=== PATIENT | male | born 1970 | race Caucasian/White ===

== ENCOUNTER → 2016-04-28 | Outpatient (CLI) | payer OTHER ==
--- NOTE | 2016-04-28 18:34 | MR ---
EXAMINATION TYPE: MR cervical spine wo con DATE OF EXAM: 04/28/2016 5:14 PM COMPARISON: 02/05/2015 HISTORY: Neck pain TECHNIQUE: Multiplanar, multisequence images of the cervical spine were acquired. C2-C3: No evidence for degenerative disc disease. No disc bulge/herniation or protrusion. No Canal stenosis. Foramina are patent bilaterally. C3-C4: No evidence for degenerative disc disease. No disc bulge/herniation or protrusion. No Canal stenosis. Foramina are patent bilaterally. C4-C5: No evidence for degenerative disc disease. No disc bulge/herniation or protrusion. No Canal stenosis. Foramina are patent bilaterally. C5-C6: No evidence for degenerative disc disease. No disc bulge/herniation or protrusion. No Canal stenosis. Foramina are patent bilaterally. C6-C7: No evidence for degenerative disc disease. No disc bulge/herniation or protrusion. No Canal stenosis. Foramina are patent bilaterally. C7-T1: No evidence for degenerative disc disease. No disc bulge/herniation or protrusion. No Canal stenosis. Foramina are patent bilaterally. Cervical segments are intact. There is normal alignment. Cervical spinal cord is of normal signal. Craniovertebral junction relationships are within normal limits. IMPRESSION: No significant abnormality appreciated.
== END ==
LOC: RADMRIMAIN 16:45
PROVIDERS: ATTEND Internal Medicine
DX: R52 Pain, unspecified (principal)
CPT/HCPCS: 72141

== ENCOUNTER → 2016-09-19 | Outpatient (CLI) | payer OTHER ==
--- NOTE | 2016-09-20 07:23 | XR ---
EXAMINATION TYPE: XR knee complete LT DATE OF EXAM: 09/19/2016 CLINICAL HISTORY: pain TECHNIQUE: Three views of the left knee are obtained. COMPARISON: None. FINDINGS: There is no acute fracture/dislocation. The tri-compartment joint spaces appear within no rmal limits. The overlying soft tissue appears unremarkable. IMPRESSION: There is no acute fracture or dislocation ICD 10 NO FRACTURE, INITIAL EVALUATION
== END | disposition home or self-care (01) ==
LOC: RADXRMAIN 16:54
PROVIDERS: ATTEND Internal Medicine
DX: M25.562 Pain in left knee (principal)

== ENCOUNTER → 2017-03-09 | Outpatient (CLI) | payer OTHER ==
--- NOTE | 2017-03-09 15:56 | XR ---
EXAMINATION TYPE: XR chest 2V DATE OF EXAM: 03/09/2017 COMPARISON: 11/10/14 HISTORY: Chest pain TECHNIQUE: Frontal and lateral views of the chest are obtained. FINDINGS: There is no focal air space opacity. No evidence for pneumothorax. No pleural effusion. The cardiac silhouette size is within normal limits. The osseous structures are grossly intact. IMPRESSION: 1. No acute cardiopulmonary process.
== END | disposition home or self-care (01) ==
LOC: RADXRMAIN 15:41
PROVIDERS: ATTEND Internal Medicine
DX: R05 Cough (principal)
CPT/HCPCS: 71046

== ENCOUNTER → 2017-03-16 | Outpatient (CLI) | payer OTHER ==
--- NOTE | 2017-03-16 15:47 | MR ---
EXAMINATION TYPE: MR lumbar spine wo con DATE OF EXAM: 03/16/2017 3:41 PM COMPARISON: NONE HISTORY: Multiplanar, MultiSpin echo imaging of the lumbar spine was performed. L1-L2: Normal disc appearance without desiccation. No herniation, protrusion or disc bulging. No ca nal stenosis is present. Foramina are patent bilaterally. L2-L3: Normal disc appearance without desiccation. No herniation, protrusion or disc bulging. No ca nal stenosis is present. Foramina are patent bilaterally. L3-L4: Normal disc appearance without desiccation. No herniation, protrusion or disc bulging. No ca nal stenosis is present. Foramina are patent bilaterally. L4-L5: Normal disc appearance without desiccation. No herniation, protrusion or disc bulging. No ca nal stenosis is present. Foramina are patent bilaterally. L5-S1: Near grade 2 anterolisthesis L5 on S1 9.5 mm. Severe degenerative disc disease with mild disc bulging. Suspect bilateral spondylolysis. No evidence for central stenosis or heaven disc herniation. Bilateral foraminal encroachment identified. Lumbar segments are intact. No paraspinal masses are identified. Conus medullaris has a normal appe arance. IMPRESSION: 1. L5-S1: Near grade 2 anterolisthesis L5 on S1 9.5 mm. Severe degenerative disc disease with mild di sc bulging. Suspect bilateral spondylolysis. 2. Bilateral foraminal encroachment at L5-S1.
== END | disposition home or self-care (01) ==
LOC: RADMRIMAIN 14:39
PROVIDERS: ATTEND Psychiatry & Neurology Neurology
DX: M43.17 Spondylolisthesis, lumbosacral region (principal); M51.26 Other intervertebral disc displacement, lumbar region; M51.36 Other intervertebral disc degeneration, lumbar region; Z88.5 Allergy status to narcotic agent
CPT/HCPCS: 72148

== ENCOUNTER 2017-05-26 00:26 | Emergency (ER) | payer OTHER ==
[2017-05-26 00:38] VITALS: BP 151/85; PULSE 79; RESP 18; TEMP 98.8
[2017-05-26] MEDS ORDERED: IBUPROFEN 800 MG TAB PO STA (00:50)
[2017-05-26] MEDS ORDERED: PENICILLIN VK 500MG STARTER 4 TAB BTL PO STA (00:51)
--- NOTE | 2017-05-26 00:53 | ED ---
General Adult HPI - General Chief complaint: Dental/Oral Stated complaint: Dental Time Seen by Provider: 05/26/17 00:44 Source: patient, RN notes reviewed Mode of arrival: ambulatory Limitations: no limitations - History of Present Illness Initial comments: Patient 47-year-old male presenting to the emergency room today with a chief complaint of dental pain. He states that no some swelling over this one. Systemic dental fracture for quite some time. Patient does admit some tenderness and pain over tooth #14. He denies any other complaints or symptoms. Denies any drainage or discharge. Patient denies any recent fever, chills, shortness of breath, chest pain, back pain, abdominal pain, nausea or vomiting, numbness or tingling, headaches or visual changes, or any other complaints. - Related Data Home Medications Medication Instructions Recorded Confirmed Albuterol Inhaler [Ventolin Hfa 1 - 2 puff INHALATION RT-Q6H PRN 01/08/16 Inhaler] Fluticasone/Vilanterol [Breo 1 puff INHALATION RT-DAILY 01/08/16 01/27/16 Ellipta 100-25 Mcg Inhaler] Losartan Potassium [Cozaar] 50 mg PO DAILY 01/08/16 01/27/16 Previous Rx's Medication Instructions Recorded HYDROcodone/APAP 7.5-325MG [[place] 1 tab PO Q6HR PRN #28 tab 01/28/16 7.5-325] Nicotine 21Mg/24Hr Patch [Habitrol] 1 each TRANSDERM DAILY #30 patch 01/28/16 Ibuprofen [Motrin] 800 mg PO Q6HR #30 tab 05/26/17 Penicillin V Potassium [Pen Vee K] 500 mg PO QID #40 tablet 05/26/17 Allergies Allergy/AdvReac Type Severity Reaction Status Date / Time codeine AdvReac Nausea & Verified 05/26/17 00:36 Vomiting Review of Systems ROS Statement: Those systems with pertinent positive or pertinent negative responses have been documented in the HPI. ROS Other: All systems not noted in ROS Statement are negative. Past Medical History Past Medical History: COPD, GERD/Reflux, Hypertension Additional Past Medical History / Comment(s): migraines, hiatal hernia, shekhar tennis elbow History of Any Multi-Drug Resistant Organisms: None Reported Past Surgical History: Orthopedic Surgery Additional Past Surgical History / Comment(s): rt wrist surgery Past Anesthesia/Blood Transfusion Reactions: No Reported Reaction Past Psychological History: Bipolar, Depression Smoking Status: Current some day smoker Past Alcohol Use History: None Reported Past Drug Use History: Marijuana - Past Family History Mother Family Medical History: No Reported History General Exam - General Exam Comments Initial Comments: General: The patient is awake and alert, in no distress, and does not appear acutely ill. Eye: Pupils are equal, round and reactive to light, extra-ocular movements are intact. No nystagmus. There is normal conjunctiva bilaterally. No signs of icterus. Ears, nose, mouth and throat: There are moist mucous membranes and no oral lesions. Patient has poor dental hygiene with multiple dental fractures the gumline. Locally tender in the gumline of tooth #15. There is no sign of abscess. There is some swelling appreciated on the outside nothing that is fluctuant. Uvula midline. Neck: The neck is supple, there is no tenderness or JVD. Musculoskeletal: Normal ROM, no tenderness. Strength 5/5. Sensation intact. Pulses equal bilaterally 2+. Neurological: A&O x 3. CN II-XII intact, There are no obvious motor or sensory deficits. Coordination appears grossly intact. Speech is normal. Skin: Skin is warm and dry and no rashes or lesions are noted. Psychiatric: Cooperative, appropriate mood & affect, normal judgment. Limitations: no limitations Course Vital Signs 05/26/17 00:36 Temperature 98.8 F Pulse Rate 79 Respiratory 18 Rate Blood Pressure 151/85 O2 Sat by Pulse 97 Oximetry Disposition Clinical Impression: Dental abscess Disposition: HOME SELF-CARE Condition: Good Instructions: Dental Abscess (ED) Additional Instructions: Please follow-up with dentist and use antibiotic and pain medication as discussed. [facility] [place] [address] [place] [address] [phone]) (existing clients only) For new clients: [phone] [employer] [facility] [employer] Pay $50 for x-rays and the rest discovered [phone] Prescriptions: Ibuprofen [Motrin] 800 mg PO Q6HR #30 tab Penicillin V Potassium [Pen Vee K] 500 mg PO QID #40 tablet Referrals: Ron Randall MD [Primary Care Provider] - 1-2 days Time of Disposition: 00:52
== END 2017-05-26 01:04 | disposition home or self-care (01) ==
LOC: EC 00:26
DX: K04.7 Periapical abscess without sinus (principal); S02.5XXA Fracture of tooth (traumatic), initial encounter for closed fracture; J44.9 Chronic obstructive pulmonary disease, unspecified; F17.200 Nicotine dependence, unspecified, uncomplicated; I10 Essential (primary) hypertension; Z88.5 Allergy status to narcotic agent; Z79.899 Other long term (current) drug therapy; X58.XXXA Exposure to other specified factors, initial encounter
CPT/HCPCS: 99282

== ENCOUNTER → 2018-04-02 | Outpatient (CLI) | payer OTHER ==
--- NOTE | 2018-04-02 12:47 | XR ---
EXAMINATION TYPE: XR chest 2V DATE OF EXAM: 04/02/2018 COMPARISON: 03/09/2017 HISTORY: History of tuberculosis. Follow-up exam. TECHNIQUE: Frontal and lateral views of the chest are obtained. FINDINGS: Incidental note is made of an azygos fissure. There is no focal air space opacity, pleural effusion, or pneumothorax seen. The cardiac silhouette size is within normal limits. The osseous structures are intact. There is pulmonary hyperinflation present with flattening of the diaphragms on the lateral view that could relate to degree of inspiration or underlying COPD. Correlate with pulmo nary function tests. IMPRESSION: No acute cardiopulmonary process.
--- NOTE | 2018-04-02 12:49 | XR ---
EXAMINATION TYPE: XR ankle complete bilateral DATE OF EXAM: 04/02/2018 CLINICAL HISTORY: Bilateral ankle pain with no known injury TECHNIQUE: Frontal, lateral and oblique images of the bilateral ankles were obtained. COMPARISON: None. FINDINGS: There is no acute fracture/dislocation evident in either ankle. The ankle mortise appears within normal limits bilaterally. The overlying soft tissue appears unremarkable. No suspicious oss eous lesion is seen. Osseous mineralization is within normal limits. IMPRESSION: Unremarkable radiographs of the bilateral ankles.
== END | disposition home or self-care (01) ==
LOC: RADXRMAIN 12:03
PROVIDERS: ATTEND Internal Medicine
DX: M25.571 Pain in right ankle and joints of right foot (principal); M25.572 Pain in left ankle and joints of left foot; Z86.11 Personal history of tuberculosis
CPT/HCPCS: 71046

== ENCOUNTER → 2018-07-13 | Outpatient (CLI) | payer OTHER ==
--- NOTE | 2018-07-16 09:35 | MR ---
EXAMINATION TYPE: MR knee RT wo con DATE OF EXAM: 07/13/2018 COMPARISON: None HISTORY: RT. knee pain TECHNIQUE: Multiplanar, multisequence imaging of the right knee is performed without IV contrast. FINDINGS: MEDIAL MENISCUS: There is a radial tear of the free edge of the posterior horn of the medial meniscus . LATERAL MENISCUS: Anterior and posterior horns are intact without tear. CRUCIATE LIGAMENTS: The anterior and posterior cruciate ligaments are intact and unremarkable. COLLATERAL LIGAMENTS: The medial collateral ligament and lateral collateral ligament complex are inta ct and unremarkable. EXTENSOR MECHANISM: Visualized quadriceps and patellar tendons are intact. EFFUSION: No significant suprapatellar joint effusion. POPLITEAL CYST: Small popliteal cyst appears unilocular. TRICOMPARTMENT SPACES: Minimal medial compartment joint space narrowing. CARTILAGE: There is very mild signal heterogeneity in the medial compartment cartilage with partial-t hickness cartilaginous loss of the tibial cartilage measuring 6 mm at the medial joint space. Lateral compartment cartilage and patellofemoral cartilage are intact and unremarkable. BONE MARROW SIGNAL: Small multilobulated lesion of the distal medial femoral condyle presumably repre senting intraosseous ganglion given its PD/T2 hyperintensity, T1 hypointensity, multicystic appearanc e. Additionally there is very mild bone marrow edema of the lateral tibial plateau deep to the menis linden tear and the most medial margin. IMPRESSION: 1. Radial tear of the free edge of the posterior horn of the medial meniscus with underlying mild bon e marrow edema and partial thickness cartilaginous defect of the tibial cartilage of the most medial aspect of the medial compartment. 2. Mild medial compartment arthrosis and chondrosis.
== END | disposition home or self-care (01) ==
LOC: RADMRIMAIN 13:12
PROVIDERS: ATTEND Orthopaedic Surgery
DX: S83.241A Other tear of medial meniscus, current injury, right knee, initial encounter (principal); M17.11 Unilateral primary osteoarthritis, right knee; M94.261 Chondromalacia, right knee

== ENCOUNTER → 2019-01-21 | Outpatient (CLI) | payer OTHER ==
--- NOTE | 2019-01-21 13:15 | XR ---
EXAMINATION TYPE: XR foot complete RT DATE OF EXAM: 01/21/2019 CLINICAL HISTORY: pain TECHNIQUE: Frontal, lateral and oblique images of the right foot are obtained. COMPARISON: None. FINDINGS: There is no acute fracture/dislocation evident. Severe degenerative narrowing first metata rsal phalangeal joint with associated spur formation. The overlying soft tissue appears unremarkable. IMPRESSION: There is no acute fracture or dislocation. ICD 10 NO FRACTURE, INITIAL EVALUATION
== END | disposition home or self-care (01) ==
LOC: RADXRMAIN 10:58
PROVIDERS: ATTEND Podiatrist
DX: M86.8X7 Other osteomyelitis, ankle and foot (principal); M19.071 Primary osteoarthritis, right ankle and foot

== ENCOUNTER → 2019-12-12 | Outpatient (CLI) | payer OTHER ==
--- NOTE | 2019-12-12 10:52 | NM ---
EXAMINATION TYPE: NM hepatobiliary w CCK DATE OF EXAM: 12/12/2019 COMPARISON: NONE HISTORY: 49-year-old male K82.8, biliary dyskinesia. TECHNIQUE: After the intravenous administration of 4.19 mCi Tc 99m Mebrofenin hepatobiliary scintigra phy is performed. Immediate images post injection. FINDINGS: There is satisfactory initial accumulation of tracer by the liver. The gallbladder is visualized wit hin 8 minutes. The small bowel activity is noted within 10 minutes. At one hour CCK was administere d, patient was injected with 1.4 mcg of Kinevac, and gallbladder ejection fraction is calculated at 8 5 %, slightly elevated. IMPRESSION: 1. No scintigraphic evidence for acute/chronic cholecystitis or biliary dyskinesia. 2. Elevated gallbladder ejection fraction of 85% may be seen in the setting of gallbladder hyperkines is. Clinically correlate.
== END | disposition home or self-care (01) ==
LOC: RADNMMAIN 08:25
PROVIDERS: ATTEND Surgery
DX: K82.8 Other specified diseases of gallbladder (principal)
CPT/HCPCS: 78227; A9537; J2805

== ENCOUNTER → 2020-01-15 | Day surgery (SDC) | payer OTHER ==
[2020-01-13 14:02] VITALS: BMI 23.8
[~2020-01-15] MED LIST: ACETAMINOPHEN TAB 500 MG TAB PO ONE; BUPIVACAINE (PF) 0.5% 30 ML VIAL SQ ONE; DEXAMETHASONE SOD PHOSPHATE 4 MG/ML 1 ML VIAL IV ONE; GLYCOPYRROLATE 0.2 MG/ML 2 ML VIAL ONE; HEPARIN SODIUM,PORCINE 5,000 UNIT/ML 1 ML VIAL SQ ONE; HYDROmorphone (PF) 1 MG/ML ONE; KETOROLAC 15 MG/ML 1 ML VIAL ONE; LACTATED RINGERS 1,000 ML IV ONE; LACTATED RINGERS 1,000 ML IV SCH; LIDOCAINE 1% (10MG/ML) FOR IV START INTRADERMA ONE; LIDOCAINE 1% INJ 10MG/ML (20 ML MDV) ONE; MIDAZOLAM 2 MG/2 ML VIAL ONE; NEOSTIGMINE 1 MG/ML 10 ML VIAL ONE; ONDANSETRON 4 MG/2 ML VIAL IVP ONE; PROPOFOL 10 MG/ML 20 ML VIAL IV ONE; ROCURONIUM 10 MG/ML (10 ML VIAL) IV ONE; SUCCINYLCHOLINE CHLORIDE 100 MG/5 ML SYR IV ONE; fentaNYL (PF) 50 MCG/ML 2 ML AMP ONE
--- NOTE | 2020-01-15 10:31 | P.GSHP ---
History of Present Illness H&P Date: 01/15/20 Chief Complaint: Right upper quadrant pain This a 41-year-old male who presents today for laparoscopic cholecystectomy. Patient's had complete the right upper quadrant pain. Her recent HIDA scan shows an elevated ejection fraction consistent with chronic cholecystitis. Past Medical History Past Medical History: COPD, GERD/Reflux, Musculoskeletal Disorder Additional Past Medical History / Comment(s): "Diagnosed with COPD many yrs ago, have never had any problems with it." Migraines, bilateral tennis elbow, chronic low back and neck pain, Degenerative Disc Disease in neck and low back. History of Any Multi-Drug Resistant Organisms: None Reported Past Surgical History: Orthopedic Surgery Additional Past Surgical History / Comment(s): Right wrist surgery, left knee surgery, hiatal hernia surgery. Past Anesthesia/Blood Transfusion Reactions: No Reported Reaction Past Psychological History: Bipolar, Depression Additional Psychological History / Comment(s): States hx Bipolar and Depression a long time ago, no current issues. Smoking Status: Current every day smoker Past Alcohol Use History: Occasional Additional Past Alcohol Use History / Comment(s): Smokes 1PPD for 40 yrs. Past Drug Use History: Marijuana Additional Drug Use History / Comment(s): Uses Marijuana daily. Aware no use 24 hrs prior to procedure. - Past Family History Mother Family Medical History: No Reported History Medications and Allergies Home Medications Medication Instructions Recorded Confirmed Type HYDROcodone/APAP 7.5-325MG [[place] 1 tab PO TID PRN 01/13/20 01/15/20 History 7.5-325] Allergies Allergy/AdvReac Type Severity Reaction Status Date / Time codeine AdvReac Nausea & Verified 01/15/20 09:06 Vomiting Surgical - Exam Vital Signs Temp Pulse Resp BP Pulse Ox 97.3 F L 53 L 16 116/73 98 01/15/20 09:15 01/15/20 09:15 01/15/20 09:15 01/15/20 09:15 01/15/20 09:15 - General well developed, well nourished, no distress - Eyes PERRL - ENT normal pinna - Neck no masses - Respiratory normal expansion - Cardiovascular Rhythm: regular - Abdomen Abdomen: soft, non tender Assessment and Plan Assessment: Chronic cholecystitis Right upper quadrant pain We'll perform laparoscopic cholecystectomy.
--- NOTE | 2020-01-15 11:31 | P.OP ---
Date of Procedure: 01/15/20 Preoperative Diagnosis: Cholecystitis Postoperative Diagnosis: Cholecystitis Procedure(s) Performed: Laparoscopic cholecystectomy Anesthesia: EBONIE Surgeon: David Amezquita Estimated Blood Loss (ml): 5 Pathology: other (Gallbladder) Condition: stable Disposition: PACU Description of Procedure: The patient was placed on the operating table. The patient received a general endotracheal tube anesthesia. The patients abdomen was prepped and draped in the usual sterile fashion. Through an infraumbilical stab incision, the fascia of the anterior abdominal wall was grasped with a pair of Kochers and then the Veress needle was placed in the peritoneal cavity. Position of the Veress needle was confirmed with positive drop test. The abdomen was then insufflated. After adequate insufflation, the 10 mm trocar was placed in the peritoneal cavity. Following this the laparoscope was placed in the peritoneal cavity. The patient was placed in the head-up, right side up position and then a 5 mm trocar was placed in the right lateral and right subcostal position under direct visualization. A 8 mm trocar was placed in the epigastric position. The gallbladder was grasped in the fundus and infundibulum. Traction on the gallbladder was placed in the lateral and the cephalad positions. The triangle of Calot was visualized.. The cystic duct was bluntly dissected until the union of the cystic duct and common bile duct was seen. A critical view of safety was achieved. The cystic duct was then divided and sealed with the Harmonic scissors. A PDS Endoloop was then placed throughout the cystic duct stump. The cystic artery divided and sealed with the Harmonic scissors. The gallbladder was then removed from the liver bed using Harmonic scissors. The gallbladder was then extracted through the epigastric port site. Operative field was checked for any bleeding spots and Harmonic scissors was used to coagulate the liver bed. The abdomen was irrigated. The trocars were removed. The skin was closed using interrupted 3-0 Vicryl suture. Dermabond dressing were applied. The patient tolerated the procedure well.
[2020-01-15] MEDS: HYDROmorphone 0.5 MG/0.5 ML SYRINGE IVP PRN ×2 (11:33→11:40)
[2020-01-15 11:41] VITALS: TEMP 98.4
[2020-01-15 12:48] VITALS: BP 124/81; PULSE 80; RESP 18
== END ==
LOC: OR 08:49
PROVIDERS: ATTEND Surgery
DX: K81.1 Chronic cholecystitis (principal); K82.8 Other specified diseases of gallbladder; J44.9 Chronic obstructive pulmonary disease, unspecified; G43.909 Migraine, unspecified, not intractable, without status migrainosus; F31.9 Bipolar disorder, unspecified; K21.9 Gastro-esophageal reflux disease without esophagitis; M50.30 Other cervical disc degeneration, unspecified cervical region; M51.36 Other intervertebral disc degeneration, lumbar region; F17.210 Nicotine dependence, cigarettes, uncomplicated; Z79.891 Long term (current) use of opiate analgesic; Z88.5 Allergy status to narcotic agent; Z98.890 Other specified postprocedural states
CPT/HCPCS: 88304; 47562; J2250; J1644; J1100; J2710; J0690; J2405; J2001; J3010; J1170 ×2; J1885; J0330; J2704

== ENCOUNTER → 2021-08-17 | Outpatient (CLI) | payer OTHER ==
--- NOTE | 2021-08-17 16:24 | XR ---
EXAMINATION TYPE: XR shoulder complete RT DATE OF EXAM: 08/17/2021 COMPARISON: NONE INDICATION: Right shoulder pain TECHNIQUE: 3 views of the right shoulder FINDINGS: Moderate degenerative changes of the right acromioclavicular joint. Unremarkable glenohumeral articul ation. No definite acute fracture line identified. No humeral head dislocation or significant subluxation. No signs of rotator cuff calcific tendinitis. Maintained acromiohumeral distance. IMPRESSION: Degenerative changes of the acromioclavicular joint.
== END | disposition home or self-care (01) ==
LOC: RADXRMAIN 15:38
PROVIDERS: ATTEND Internal Medicine
DX: M19.011 Primary osteoarthritis, right shoulder (principal)

== ENCOUNTER 2022-03-15 07:33 | Emergency (ER) | payer OTHER ==
[2022-03-15 07:37] VITALS: BP 149/100; PULSE 78; RESP 18; TEMP 98
[2022-03-15] MEDS ORDERED: HYDROcodone/APAP 5-325MG 1 EACH TAB PO STA (07:44)
[2022-03-15] MEDS ORDERED: KETOROLAC 15 MG/ML 1 ML VIAL IM STA (07:44)
--- NOTE | 2022-03-15 08:12 | ED ---
Upper Extremity HPI - General Chief Complaint: Extremity Injury, Upper Stated Complaint: lt hand injury Time Seen by Provider: 03/15/22 07:38 Source: patient, RN notes reviewed Mode of arrival: ambulatory Limitations: no limitations - History of Present Illness Initial Comments: This is a 52-year-old male who presents to the emergency department for a left hand injury. Patient states that he was moving furniture at work yesterday, and subsequently slammed his left pinky finger into the dresser drawer. He is now having difficulty fully closing his hand and moving the pinky finger. He has been taking Tylenol with no relief in his symptoms. He is concerned that he may have broken the finger. He has not been applying any ice or taking over-the-c ounter anti-inflammatories. Denies any fevers, chills, sore throat, cough, dyspnea, chest pain, palpitations, abdominal pain, nausea, vomiting, diarrhea, back pain, or headaches. MD Complaint: Injury to:: left, finger Onset/Timin -: days(s) Handedness: left Place: work Context: crush - Related Data Home Medications Medication Instructions Recorded Confirmed HYDROcodone/APAP 7.5-325MG [[place] 1 tab PO TID PRN 01/13/20 01/15/20 7.5-325] Previous Rx's Medication Instructions Recorded Acetaminophen Tab [Tylenol] 650 mg PO Q6H #30 tab 01/15/20 Docusate [Colace] 100 mg PO BID #20 capsule 01/15/20 Ibuprofen [Motrin] 600 mg PO Q6HR PRN #40 tab 01/15/20 Celecoxib 100 mg PO BID PRN #15 capsule 03/15/22 Allergies Allergy/AdvReac Type Severity Reaction Status Date / Time codeine AdvReac Nausea & Verified 03/15/22 07:37 Vomiting Review of Systems ROS Statement: Those systems with pertinent positive or pertinent negative responses have been documented in the HPI. ROS Other: All systems not noted in ROS Statement are negative. Past Medical History Past Medical History: COPD, GERD/Reflux, Musculoskeletal Disorder Additional Past Medical History / Comment(s): "Diagnosed with COPD many yrs ago, have never had any problems with it." Migraines, bilateral tennis elbow, chronic low back and neck pain, Degenerative Disc Disease in neck and low back. History of Any Multi-Drug Resistant Organisms: None Reported Past Surgical History: Orthopedic Surgery Additional Past Surgical History / Comment(s): Right wrist surgery, left knee surgery, hiatal hernia surgery. Past Anesthesia/Blood Transfusion Reactions: No Reported Reaction Past Psychological History: Bipolar, Depression Smoking Status: Current every day smoker Past Alcohol Use History: Occasional Past Drug Use History: Marijuana - Past Family History Mother Family Medical History: No Reported History General Exam Limitations: no limitations General appearance: alert, in no apparent distress Head exam: Present: atraumatic, normocephalic, normal inspection Respiratory exam: Present: normal lung sounds bilaterally. Absent: respiratory distress, wheezes, rales, rhonchi, stridor Cardiovascular Exam: Present: regular rate, normal rhythm, normal heart sounds. Absent: systolic murmur, diastolic murmur, rubs, gallop, clicks Extremities exam: Present: other (Swelling of the entire digit of the left 5th finger. Limited passive range of motion secondary to pain. Tenderness to palpation.) Neurological exam: Present: alert, oriented X3, CN II-XII intact Psychiatric exam: Present: normal affect, normal mood Skin exam: Present: warm, dry, intact, normal color. Absent: rash Course Vital Signs 03/15/22 07:35 Temperature 98 F Pulse Rate 78 Respiratory 18 Rate Blood Pressure 149/100 O2 Sat by Pulse 99 Oximetry Medical Decision Making - Medical Decision Making This is a 52-year-old male who presents to the emergency department for a left hand injury. Was pt. sent in by a medical professional or institution? @ -No Did you speak to anyone other than the patient for history? @ -No Did you review nursing and triage notes? @ -Agree, accurate with regards to the patient's symptoms. Were old charts reviewed? @ -No Differential Diagnosis? @ -Fracture, contusion, sprain, dislocation, tendinitis, this is not meant to be an all-inclusive list. X-rays interpreted by me (1pt min.)? @ -X-ray of the left fifth digit obtained. My interpretation identifies no acute fractures or dislocations. What testing was considered but not performed? (CT, X-rays, U/S, labs)? Why? @ -None What meds were considered but not given? Why? @ -None Did you discuss the management of the patient with other professionals? @ -No Did you reconcile home meds? @ -No Was smoking cessation discussed for >3mins.? @ -No Was critical care preformed (if so, how long)? @ -No Were there social determinants of health that impacted care today? How? (Homelessness, low income, unemployed, alcoholism, drug addiction, transportation, low edu. Level, literacy, decrease access to med. care, prison, rehab)? @ -No Was there de-escalation of care discussed even if they declined? (Discuss DNR or withdrawal of care, Hospice)? @ -No What co-morbidities impacted this encounter? (DM, HTN, Smoking, COPD, CAD, Cancer, CVA, Hep., AIDS, mental health diagnosis, sleep apnea, morbid obesity)? @ -None Was patient admitted / discharged? @ -Discharged. Patient was given IM Toradol and [place] for his pain, which did offer improvement. X-ray obtained as listed above with no acute findings. I was originally going to advise ibuprofen, however patient states that he prefers to avoid this due to his hiatal hernia in the fact that this causes abdominal discomfort. Not currently taking a PPI or H2 salima. Prescription for Celebrex provided with dosing instructions reviewed. Advised that this is less likely to cause abdominal pain than ibuprofen. Advised to otherwise continue to take Tylenol. He is also instructed to apply ice for 10-15 minutes every 2-3 hours for the first 2-3 days followed by heat there afterwards. A finger was applied and a splint as well. Undiagnosed new problem with uncertain prognosis? @ -Left fifth finger injury Drug Therapy requiring intensive monitoring for toxicity (Heparin, Nitro, Insulin, Cardizem)? @ -None Were any procedures done? @ -None Diagnosis/symptom? @ -Jammed finger of left 5th finger Acute, or Chronic, or Acute on Chronic? @ -Acute Uncomplicated (without systemic symptoms) or Complicated (systemic symptoms)? @ -Uncomplicated Side effects of treatment? @ -None Exacerbation, Progression, or Severe Exacerbation] @ -Not applicable Poses a threat to life or bodily function? @ -May impact his function if he cannot use his finger or hand. Return precautions reviewed in depth, the patient is instructed to return to the emergency department with any new, worsening, or concerning symptoms. Patient verbalized understanding. This case was discussed in detail with the attending ED physician, Dr. Krishnamurthy. Presentation, findings, and treatment plan discussed in detail as well. - Radiology Data Radiology results: report reviewed, image reviewed Disposition Clinical Impression: Jammed interphalangeal joint of finger of left hand Disposition: HOME SELF-CARE Instructions (If sedation given, give patient instructions): Jammed Finger (ED) Additional Instructions: Return to the emergency department with any new, worsening, or concerning symptoms. You can take the Celebrex twice daily for pain. This is less likely to cause any problems with your stomach, however if any irritation occurs stop taking it. You can also try taking it with food to further lessen the likelihood of abdominal pain. Apply ice for 10-15 minutes every 2-3 hours for the first 2-3 days followed by heat there afterwards. You can use the finger splint as needed to reduce any additional painful movement. Follow up with your primary care provider in 1-2 days. Prescriptions: Celecoxib 100 mg PO BID PRN #15 capsule PRN Reason: Pain Is patient prescribed a controlled substance at d/c from ED?: No Referrals: Jackie Cohen MD [Primary Care Provider] - 1-2 days
--- NOTE | 2022-03-15 08:21 | XR ---
EXAMINATION TYPE: XR finger LT DATE OF EXAM: 03/15/2022 8:17 AM INDICATION: Patient age:Male; 52 years old; Reason for study: Left pinky injury; [facility]. COMPARISON: None TECHNIQUE: Frontal, lateral and oblique views of the fifth digit of the left hand were obtained. FINDINGS: Normal alignment of the visualized joints. No acute osseous pathology is identified. No ra diopaque foreign bodies. Diffuse minimal soft tissue swelling of the fifth digit. IMPRESSION: 1. No acute osseous pathology. 2. Diffuse minimal soft tissue swelling of the fifth digit.
== END 2022-03-15 08:47 | disposition home or self-care (01) ==
LOC: EC 07:33
DX: S63.631A Sprain of interphalangeal joint of left index finger, initial encounter (principal); J44.9 Chronic obstructive pulmonary disease, unspecified; F31.9 Bipolar disorder, unspecified; F17.200 Nicotine dependence, unspecified, uncomplicated; F12.90 Cannabis use, unspecified, uncomplicated; Z88.5 Allergy status to narcotic agent; W23.0XXA Caught, crushed, jammed, or pinched between moving objects, initial encounter
CPT/HCPCS: 99283; 96372; 73140; J1885

== ENCOUNTER 2022-08-18 19:42 | Emergency (ER) | payer OTHER ==
[2022-08-18 21:02] VITALS: BP 118/72; PULSE 62; RESP 20; TEMP 98.1
--- NOTE | 2022-08-18 21:43 | ED ---
ENT HPI - General Chief complaint: ENT Stated complaint: L Side Facial Swelling Time Seen by Provider: 08/18/22 21:37 Source: patient Mode of arrival: ambulatory Limitations: no limitations - History of Present Illness Initial comments: 52-year-old male presenting with chief complaint of left-sided jaw pain and swelling. Patient has known history of several fractured teeth and dental caries. He does not follow with dentist. States that this was made worse after eating chewy candy. No fever, chills, difficulty breathing, difficulty swallowing, nausea, vomiting, headache, neck pain. - Related Data Home Medications Medication Instructions Recorded Confirmed HYDROcodone/APAP 7.5-325MG [[place] 1 tab PO TID PRN 01/13/20 01/15/20 7.5-325] Previous Rx's Medication Instructions Recorded Acetaminophen Tab [Tylenol] 650 mg PO Q6H #30 tab 01/15/20 Docusate [Colace] 100 mg PO BID #20 capsule 01/15/20 Ibuprofen [Motrin] 600 mg PO Q6HR PRN #40 tab 01/15/20 Celecoxib 100 mg PO BID PRN #15 capsule 03/15/22 Amoxic-Pot Clav 875-125Mg 1 tab PO BID 7 Days #14 tab 08/18/22 [Augmentin 875-125] Allergies Allergy/AdvReac Type Severity Reaction Status Date / Time codeine AdvReac Nausea & Verified 08/18/22 21:02 Vomiting Review of Systems ROS Statement: Those systems with pertinent positive or pertinent negative responses have been documented in the HPI. ROS Other: All systems not noted in ROS Statement are negative. Past Medical History Past Medical History: COPD, GERD/Reflux, Musculoskeletal Disorder Additional Past Medical History / Comment(s): "Diagnosed with COPD many yrs ago, have never had any problems with it." Migraines, bilateral tennis elbow, chronic low back and neck pain, Degenerative Disc Disease in neck and low back. History of Any Multi-Drug Resistant Organisms: None Reported Past Surgical History: Orthopedic Surgery Additional Past Surgical History / Comment(s): Right wrist surgery, left knee surgery, hiatal hernia surgery. Past Anesthesia/Blood Transfusion Reactions: No Reported Reaction Past Psychological History: Bipolar, Depression Smoking Status: Current every day smoker Past Alcohol Use History: Occasional Past Drug Use History: Marijuana - Past Family History Mother Family Medical History: No Reported History General Exam Limitations: no limitations General appearance: alert, in no apparent distress Head exam: Present: atraumatic, normocephalic, normal inspection Eye exam: Present: normal appearance, EOMI. Absent: scleral icterus, periorbital swelling Expanded Mouth exam: Present: tongue normal. Absent: drooling, trismus, muffled voice Teeth exam: Present: dental caries, fractured tooth #, dental tenderness # Throat exam: normal inspection Neck exam: Present: normal inspection, full ROM. Absent: lymphadenopathy Respiratory exam: Present: normal lung sounds bilaterally. Absent: respiratory distress, wheezes, rales, rhonchi, stridor Cardiovascular Exam: Present: regular rate, normal rhythm, normal heart sounds. Absent: systolic murmur, diastolic murmur, rubs, gallop, clicks Neurological exam: Present: alert, oriented X3, CN II-XII intact Psychiatric exam: Present: normal affect, normal mood Skin exam: Present: warm, dry, intact, normal color. Absent: rash Course Vital Signs 08/18/22 20:59 Temperature 98.1 F Pulse Rate 62 Respiratory 20 Rate Blood Pressure 118/72 O2 Sat by Pulse 97 Oximetry Medical Decision Making - Medical Decision Making Was pt. sent in by a medical professional or institution (, PA, INTELLIGENCE OFFICER, urgent care, hospital, or long term...) When possible be specific @ -No Did you speak to anyone other than the patient for history (EMS, parent, family, police, friend...)? What history was obtained from this source @ -No Did you review nursing and triage notes (agree or disagree)? Why? @ -I reviewed and agree with nursing and triage notes Were old charts reviewed (outside hosp., previous admission, EMS record, old EKG, old radiological studies, urgent care reports/EKG's, long term records)? Report findings @ -No old charts were reviewed Differential Diagnosis (chest pain, altered mental status, abdominal pain women, abdominal pain men, vaginal bleeding, weakness, fever, dyspnea, syncope, headache, dizziness, GI bleed, back pain, seizure, CVA, palpatations, mental health, musculoskeletal)? @ Differential includes toothache, dental abscess, Al's angina, this is not an all inclusive list EKG interpreted by me (3pts min.). @ -As above X-rays interpreted by me (1pt min.). @ -None done CT interpreted by me (1pt min.). @ -None done U/S interpreted by me (1pt. min.). @ -None done What testing was considered but not performed or refused? (CT, X-rays, U/S, labs)? Why? @ -None What meds were considered but not given or refused? Why? @ -None Did you discuss the management of the patient with other professionals (professionals i.e. , PA, INTELLIGENCE OFFICER, lab, RT, psych nurse, nephrology social worker, lift electrician, teacher, animal park code enforcement officer, family independence case manager)? Give summary @ -No Was smoking cessation discussed for >3mins.? @ -No Was critical care preformed (if so, how long)? @ -No Were there social determinants of health that impacted care today? How? (Homelessness, low income, unemployed, alcoholism, drug addiction, transportation, low edu. Level, literacy, decrease access to med. care, [facility] [facility], rehab)? @ -No Was there de-escalation of care discussed even if they declined (Discuss DNR or withdrawal of care, Hospice)? DNR status @ -No What co-morbidities impacted this encounter? (DM, HTN, Smoking, COPD, CAD, Cancer, CVA, ARF, Chemo, Hep., AIDS, mental health diagnosis, sleep apnea, morbid obesity)? @ -None Was patient admitted / discharged? Hospital course, mention meds given and route, prescriptions, significant lab abnormalities, going to OR and other pertinent info. @ -52-year-old male presenting with chief complaint of dental pain and swelling. Exam shows multiple dental caries and fractured teeth, no brawny induration and normal posterior pharynx. Patient is started on Augmentin and instructed to alternate Motrin and Tylenol as needed for pain control. Provided with follow-up for a local dental clinic. Follow-up with PCP. Report back to ER with any new or worsening symptoms. Discussed return parameters and answered all questions. Patient conveyed verbal understanding and agreed to the plan. I discussed this case in detail with my attending Dr. Fuentes Undiagnosed new problem with uncertain prognosis? @ -No Drug Therapy requiring intensive monitoring for toxicity (Heparin, Nitro, Insulin, Cardizem)? @ -No Were any procedures done? @ -No Diagnosis/symptom? @ -Dental abscess Acute, or Chronic, or Acute on Chronic? @ -Acute Uncomplicated (without systemic symptoms) or Complicated (systemic symptoms)? @ -Uncomplicated Side effects of treatment? @ -No Exacerbation, Progression, or Severe Exacerbation? @ -No Poses a threat to life or bodily function? How? (Chest pain, [place], AR, pneumonia, PE, COPD, DKA, ARF, appy, cholecystitis, CVA, Diverticulitis, Homicidal, Suicidal, threat to staff... and all critical care pts) @ -No Disposition Clinical Impression: Dental abscess Disposition: HOME SELF-CARE Condition: Good Instructions (If sedation given, give patient instructions): Dental Abscess (ED) Additional Instructions: Please follow up with the [facility] dental clinic. [facility] [place] [address]. Phone number for new patients or [phone] for existing patients. Alternate Motrin and Tylenol as needed for pain control. Take medication as prescribed. Prescriptions: Amoxic-Pot Clav 875-125Mg [Augmentin 875-125] 1 tab PO BID 7 Days #14 tab Is patient prescribed a controlled substance at d/c from ED?: No Referrals: Jackie Cohen MD [Primary Care Provider] - 1-2 days Time of Disposition: 21:43
== END 2022-08-18 22:22 | disposition home or self-care (01) ==
LOC: EC 19:42
DX: K04.7 Periapical abscess without sinus (principal); K02.9 Dental caries, unspecified; J44.9 Chronic obstructive pulmonary disease, unspecified; F17.200 Nicotine dependence, unspecified, uncomplicated; F12.90 Cannabis use, unspecified, uncomplicated; Z88.5 Allergy status to narcotic agent
CPT/HCPCS: 99282

== ENCOUNTER → 2023-03-14 | Outpatient (CLI) | payer OTHER ==
--- NOTE | 2023-03-14 10:10 | XR ---
EXAMINATION TYPE: XR chest 2V DATE OF EXAM: 03/14/2023 9:49 AM CLINICAL INDICATION:Male, 53 years old with history of R06.2 SOB; [facility] COMPARISON: Chest radiographs from 04/02/2018 TECHNIQUE: XR chest 2V Frontal and lateral views of the chest. FINDINGS: Lungs/Pleura: There is no evidence of pleural effusion, focal consolidation, or pneumothorax. Pulmonary vascularity: Unremarkable. Heart/mediastinum: Cardiomediastinal silhouette is unremarkable. Musculoskeletal: No acute osseous pathology. Other findings: None IMPRESSION: No acute cardiopulmonary disease process.
== END | disposition home or self-care (01) ==
LOC: RADXRMAIN 09:30
PROVIDERS: ATTEND Internal Medicine
DX: R06.02 Shortness of breath (principal)
CPT/HCPCS: 71046

== ENCOUNTER → 2023-07-13 | Outpatient (CLI) | payer OTHER ==
--- NOTE | 2023-07-13 11:32 | BD ---
EXAMINATION TYPE: Axial Bone Density DATE OF EXAM: 07/13/2023 CLINICAL HISTORY: 53 years old Male. ICD-10 CODE: M85.88 OTH DISRD OF BONE DENSITY AND STRUCTURE, OT Height: 65.5 Weight: 141.3 FRAX RISK QUESTIONS: Alcohol (3 or more units per day): no Family History (Parent hip fracture): no Glucocorticoids (More than 3mos): no (Ex: prednisone, prednisolone, methylprednisolone, dexamethasone, and hydrocortisone). History of Fracture in Adulthood: no Secondary Osteoporosis: 1. Type 1 Diabetes: no 2. Hyperthyroidism: no 3. Menopause before 45: na 4. Malnutrition: no 5. Chronic liver disease: no Rheumatoid Arthritis: no Current Tobacco Use: yes RISK FACTORS HISTORY OF: Hip Fracture (Right/Left): no Spine Fracture: no History of Wrist Fracture: no Surgery to Spine/Hip(right/left)/Wrist (right/left): no When: MEDICATIONS: Thyroid Medications: no Osteoporosis Medications: no EXAM MEASUREMENTS: Bone mineral densitometry was performed using the [employer]. Bone mineral density as measured about the Lumbar spine is: ----- L1-L4(G/cm2): 0.934 T Score Values are as follows: ----- L1: -2.0 ----- L2: -1.5 ----- L3: -1.9 ----- L4: -2.8 ----- L1-L4: -2.1 Z Score Values are as follows: ----- L1: -1.6 ----- L2: -1.2 ----- L3: -1.5 ----- L4: -2.4 ----- L1-L4: -1.7 Baseline Study Bone mineral density about the R hip (g/cm2): 0.805 Bone mineral density about the L hip (g/cm2): 0.840 T Score values are as follows: -----R Neck: -2.1 -----L Neck: -1.8 -----R Total: -1.6 -----L Total: -1.3 Z Score values are as follows: -----R Neck: -1.5 -----L Neck: -1.2 -----R Total: -1.4 -----L Total: -1.2 Baseline Study FRAX%s: The graph provided illustrates a 6.7% chance for a major osteoporotic fx and a 2.4% chance fo r the hips probability for fx in 10 years time. IMPRESSION: Osteoporosis (T Score less than -2.5). There is increased fracture risk and therapy is usually indicated based on age. Re-Screen 1-2 years. NOTE: T-SCORE=SD OF THE YOUNG ADULT MEAN.
== END | disposition home or self-care (01) ==
LOC: RADBDWWP 08:31
PROVIDERS: ATTEND Internal Medicine
DX: M85.89 Other specified disorders of bone density and structure, multiple sites (principal)
CPT/HCPCS: 77080

== ENCOUNTER → 2024-05-29 | Outpatient (CLI) | payer OTHER ==
--- NOTE | 2024-05-29 16:24 | CTL ---
EXAMINATION TYPE: CT Low Dose Lung DATE OF EXAM: 05/29/2024 4:06 PM COMPARISON: None. CLINICAL INDICATION: Male, 54 years old with history of Z12.2 Screening; F17.210 Nicotine dependence, personal tobacco use, History of tobacco use. TECHNIQUE: Low dose computed tomography scan was performed through the chest at 1 mm thick sections a nd reconstructed images in multiple planes at 1 mm and [address] DLP: 73.5 mGycm, CT CTDI: 1.8 mGy, Automated exposure control for dose reduction was used. CT DIAGNOSTIC QUALITY: Satisfactory FINDINGS: Heart normal size without pericardial effusion. Scattered three-vessel coronary artery calcifications are present. Aorta normal caliber with conventional arch vessel branching anatomy and minimal atherosclerotic arch calcifications. No thoracic lymphadenopathy by CT size criteria. Normal variant azygous fissure. Some strandy scarring/atelectasis at the posterior lung bases. Mild d iffuse bronchial wall thickening. Mild emphysematous changes present. No consolidation or pleural eff usion. 6 mm anterior right midlung pulmonary nodule, axial image 190. Some surgical material at the distal esophagus with suggestion of a suspected slipped Mau fundopli cation wrap and a recurrent moderate-sized hiatal hernia. Visualized upper abdomen otherwise shows a couple hepatic cysts measuring up to 1.7 cm. Bones: No osseous destructive process. IMPRESSION: 1. LungRADS Category 3 (probably benign, 1-2% chance of malignancy); a solitary 6 mm right mid lung p ulmonary nodule on baseline screening. 2. COPD with mild emphysema. 3. Suspect previous Mau fundoplication but with a slipped Mau fundoplication wrap and recurrent moderate-sized hiatal hernia. If symptomatic, consider referring the patient back to their surgeon. CT LUNG RAD AND CT CHEST RECOMMENDATION: Lung-Rad 3 Probably Benign: 6 month follow-up LDCT. S Modifier (other clinically significant findings): S, see above regarding suspected previous Mau fundoplication. [facility], , 05/29/2024 4:21 PM
== END | disposition home or self-care (01) ==
LOC: RADCTMAIN 14:56
PROVIDERS: ATTEND Internal Medicine Critical Care Medicine
DX: Z12.2 Encounter for screening for malignant neoplasm of respiratory organs (principal); F17.210 Nicotine dependence, cigarettes, uncomplicated; J44.9 Chronic obstructive pulmonary disease, unspecified; J43.9 Emphysema, unspecified
CPT/HCPCS: 71271